=== PATIENT | female | born 1945 | race Caucasian/White ===

== ENCOUNTER 2016-10-07 20:35 | Inpatient (IN) | payer OTHER ==
[~2016-10-07] VITALS: Ht 165.1 cm; Wt 60.8 kg
--- NOTE | 2016-10-07 20:35 | NUR ---
PT AMBULATORY TO ER BED 10. C/O R SHOULDER/ R UPPER ARM PAIN S/P MECHANICAL FALL AT HOME AT AROUND 1999. PT DENIES HEAD TRAUMA. PLACED ON MONITOR. STABLE VITALS NOTED. AWAITNGMD EVAL.
--- NOTE | 2016-10-07 20:57 | NUR ---
[employer] AT BEDSIDE FOR EVAL.
[2016-10-07] MEDS ORDERED: oxyCODONE/APAP (5/325 MG) 1 UDTAB TABLET PO ONE (21:00)
[2016-10-07] MEDS ORDERED: MORPHINE SULFATE INJ 4 MG/ML DISP.SYRIN ONE (21:04)
[2016-10-07] MEDS ORDERED: ONDANSETRON 4 MG TAB.RAPDIS ONE (21:04)
--- NOTE | 2016-10-07 21:08 | NUR ---
ALLERGIC TO TYLENOL. KARLENE MADE AWARE. VERBAL ORDER FOR MORPHINE 4MG IM AND ZOFRAN 4MG ODT. CARRIED OUT.
--- NOTE | 2016-10-07 21:12 | NUR ---
RADIOLOGY AT BEDSIDE FOR R SHOULDER/ R HUMERUS XRAY.
[2016-10-07] MEDS ORDERED: ONDANSETRON 4 MG TAB.RAPDIS SL ONE (22:00)
[2016-10-07] MEDS ORDERED: MORPHINE SULFATE INJ 2 MG/ML DISP.SYRIN IV ONE (22:00)
--- NOTE | 2016-10-07 22:25 | NUR ---
RADIOLOGY AT BEDSIDE FOR CHEST XRAY.
[2016-10-07 22:30] LABS: BASOPHILS % (AUTO) 0.4 % (0.0-2.0); EOSINOPHILS # (AUTO) 0.1 /CMM (0.0-0.7); EOSINOPHILS % (AUTO) 1.1 % (0.0-6.0); HEMATOCRIT 40 % (33-45); HEMOGLOBIN 13.6 g/dL (11.5-14.8); LYMPHOCYTES # (AUTO) 1.3 /CMM (0.8-4.8); LYMPHOCYTES % (AUTO) 23.9 % (20.0-44.0); MEAN CORPUSCULAR HEMOGLOBIN 32 PG (26.0-33.0); MEAN CORPUSCULAR HGB CONC 34 g/dl (31.0-36.0); MEAN CORPUSCULAR VOLUME 93 fL (82-100); MONOCYTES # (AUTO) 0.5 /CMM (0.1-1.30); MONOCYTES % (AUTO) 8.6 % (2.0-12.0); NEUTROPHILS # (AUTO) 3.6 /CMM (1.8-8.9); PLATELET COUNT (AUTO) 186 /CMM (150-450); RDW COEFFICIENT OF VARIATION 14.3 (11.5-15.0); WHITE BLOOD COUNT (AUTO) 5.4 K/uL (4.3-11.0)
[2016-10-07 22:41] LABS: CALCIUM, SERUM 9.1 mg/dL (8.5-10.1); CARBON DIOXIDE 25 mmol/L (21-32); CHLORIDE 105 mmol/L (98-107); CREATININE 0.6 mg/dL (0.6-1.3); GLUCOSE 146 mg/dL (74-106); POTASSIUM 3.9 mmol/L (3.5-5.1); SODIUM SERUM 141 mmol/L (136-145); UREA NITROGEN, BLOOD 16 mg/dL (7-18)
[2016-10-07 22:45] LABS: INR 0.94 (0.87-1.13)
--- NOTE | 2016-10-07 22:46 | NUR ---
REPORT GIVEN TO ERICK. PT AWAITING TRANSFER TO FLOOR.
--- NOTE | 2016-10-07 22:47 | NUR ---
CALLED [employer] MILITARY SOURCE OPERATIONS OFFICER WAS PAGED.
[2016-10-07] MEDS ORDERED: ACETAMINOPHEN 325 MG TABLET PO PRN (23:00)
[2016-10-07] MEDS ORDERED: ZOLPIDEM TARTRATE 5 MG TABLET PO PRN (23:00)
[2016-10-07] MEDS ORDERED: MORPHINE SULFATE INJ 2 MG/ML DISP.SYRIN IV PRN (23:00)
[2016-10-07] MEDS ORDERED: Z GUARD REMEDY 2 OZ OINT TP PRN (23:00)
[2016-10-07] MEDS ORDERED: ONDANSETRON HCL/PF 4 MG/2 ML VIAL IVP PRN (23:00)
[2016-10-07] MEDS ORDERED: MAG HYDROX/AL HYDROX/SIMETH 30 ML UDC PO PRN (23:00)
[2016-10-07] MEDS ORDERED: HYDROCODONE/APAP 5/325MG 1 EACH TABLET PO PRN (23:00)
[2016-10-07 23:30] VITALS: BP 139/80
[2016-10-07] MEDS ORDERED: MORPHINE SULFATE INJ 2 MG/ML DISP.SYRIN ONE (23:35)
[2016-10-07] MEDS ORDERED: IV NS 0.9% 1,000 ML ONE (23:35)
[2016-10-07] MEDS ORDERED: IV SET PRIMARY PUMP SET 1 EA INFUS.SET MC ONE (23:36)
--- NOTE | 2016-10-07 23:45 | NUR ---
RN NOTE; ADMITTED A 71 Y/O, F, A. OX4, BREATHING EVENLY. NO SOB. NAD. SKIN WARM AND DRY. ABLE TO AMBULATE TO THE BED W/ ASSIST. W/ C/O PAIN OR RIGHT SHOULDER UPON MOVEMENT AND REPOSITION OTHER [place] TOLERABLE. VS:WNL. IV LINE INTACT AND PATENT. ABLE TO PROVIDE FULL DETAILED MEDICAL HX. NEEDS ATTENDED . CALL LIGHT WITHIN REACH. WILL CONT TO MONITOR AND WILL F/U W/ MD'S ORDERS.
[2016-10-07] MEDS: IV NS 0.9% 1,000 ML IV PRN (23:49)
[2016-10-08] VITALS: BP 139/80
--- NOTE | 2016-10-08 00:20 | NUR ---
S/B DR. BRANDON KEATING W/ SOME NEW ORDERS .
--- NOTE | 2016-10-08 00:30 | NUR ---
RECEIVED A CALL FROM JEOVANNY FROM PT'S INSURANCE COMPANY, SHERRI STATED THE PT'S INSURANCE WILL COVER OVER NIGHT STAY, PAIN MANAGEMENT AND PHYSICIAN CONSULT HOWEVER PT WILL NEED AUTHORIZATION FOR POSSIBLE SX.
--- NOTE | 2016-10-08 01:00 | NUR ---
morphine given as ordered for c/o severe r shoulder pain. will cont to monitor
--- NOTE | 2016-10-08 06:15 | NUR ---
RN NOTE; PT IN BED SLEEPING, AROUSES EASILY. BREATHING EVENLY. N SOB. NAD. SKIN WARM AND DRY. SLING ON THE R SHOULDER/ ARM IN PLACE. MORPHINE GIVEN FOR PAIN MANAGEMENT, EFFECTIVE. NEEDS ATTENDED. CALL LIGHT WITHIN REACH. WILL CONT TO MONITOR AND WILL ENDORSE TO AM SHIFT FOR KACI.
--- NOTE | 2016-10-08 07:05 | NUR ---
RN NOTE: RECEIVED PATIENT WHILE SITTING ON CHAIR AT BEDSIDE. PATIENT A/OX 3. BREATHING EVEN AND UNLABORED ON ROOM AIR. PATIENT'S RIGHT ARM IN SLING, NO COMPLAINTS OF PAIN AT THIS MOMENT. PATIENT'S NEEDS ATTENDED TO, SAFETY MEASURES IN PLACE, WILL CONTINUE TO MONITOR.
[2016-10-08 08:00] VITALS: BP 121/71
[2016-10-08] MEDS ORDERED: ATOR40TA PO (08:35)
[2016-10-08] MEDS ORDERED: EZET10TA27 PO (08:35)
[2016-10-08 08:37] LABS: BASOPHILS % (AUTO) 0.2 % (0.0-2.0); EOSINOPHILS # (AUTO) 0.1 /CMM (0.0-0.7); EOSINOPHILS % (AUTO) 0.8 % (0.0-6.0); HEMATOCRIT 40 % (33-45); HEMOGLOBIN 13.5 g/dL (11.5-14.8); LYMPHOCYTES # (AUTO) 1.8 /CMM (0.8-4.8); LYMPHOCYTES % (AUTO) 20.4 % (20.0-44.0); MEAN CORPUSCULAR HEMOGLOBIN 32 PG (26.0-33.0); MEAN CORPUSCULAR HGB CONC 34 g/dl (31.0-36.0); MEAN CORPUSCULAR VOLUME 93 fL (82-100); MONOCYTES # (AUTO) 0.6 /CMM (0.1-1.30); MONOCYTES % (AUTO) 6.8 % (2.0-12.0); NEUTROPHILS # (AUTO) 6.4 /CMM (1.8-8.9); NEUTROPHILS % (AUTO) 71.8 % (43.0-81.0); PLATELET COUNT (AUTO) 184 /CMM (150-450); RED BLOOD CELL COUNT(AUTO) 4.27 MIL/uL (4.0-5.2); WHITE BLOOD COUNT (AUTO) 8.9 K/uL (4.3-11.0)
[2016-10-08] MEDS: PANTOPRAZOLE 40 MG TABLET.DR PO SCH (08:50)
[2016-10-08 08:51] LABS: ALANINE AMINOTRANSFERASE 23 U/L (12-78); ALBUMIN 3.5 g/dL (3.4-5.0); ALKALINE PHOSPHATASE 63 U/L (46-116); ASPARTATE AMINOTRANSFERASE 17 U/L (15-37); BILIRUBIN,TOTAL 0.3 mg/dL (0.2-1.0); CALCIUM, SERUM 8.5 mg/dL (8.5-10.1); CARBON DIOXIDE 26 mmol/L (21-32); CHLORIDE 104 mmol/L (98-107); CREATININE 0.6 mg/dL (0.6-1.3); GLUCOSE 99 mg/dL (74-106); MAGNESIUM 1.9 mg/dL (1.8-2.4); PHOSPHORUS 4.6 mg/dL (2.5-4.9); POTASSIUM 4.8 mmol/L (3.5-5.1); SODIUM SERUM 140 mmol/L (136-145); TOTAL PROTEIN, SERUM 6.9 g/dL (6.4-8.2); UREA NITROGEN, BLOOD 16 mg/dL (7-18)
--- NOTE | 2016-10-08 10:15 | NUR ---
MS RN NOTE: PER LUIS MIGUEL BLUNT OKAY TO CHANGE MORPHINE 3 MG TO DILAUDID 1MG Q4H PRN. PATIENT IN PAIN, WILL ADMINISTER DILAUDID.
[2016-10-08] MEDS ORDERED: HYDROMORPHONE 1 MG/1 ML DISP.SYRIN IV PRN (10:30)
--- NOTE | 2016-10-08 12:55 | NUR ---
MS RN NOTE: PATIENT EXPLAINED SURGICAL PROCEDURE SCHEDULED FOR TOMORROW. PATIENT VERBALIZES UNDERSTANDING AND HAS SIGNED CONSENT FOR SURGERY, ANESTHESIA, AND BLOOD TRANSFUSION. CONSENTS PLACED IN CHART.
--- NOTE | 2016-10-08 15:05 | NUR ---
MS RN NOTE: PER LUIS MIGUEL SANCHEZ, ORDER CT RIGHT SHOULD WITHOUT CONTRAST. ORDER PLACED, WILL CONTINUE TO MONITOR.
--- NOTE | 2016-10-08 15:13 | NUR ---
MS RN NOTE: PATIENT STATING HER INSURANCE COMPANY WILL NOT AUTHORIZE CT SCAN. PATIENT UNWILLING TO DO CT SCAN UNLESS AUTHORIZED, WILL CONTINUE TO MONITOR.
--- NOTE | 2016-10-08 15:31 | NUR ---
PT REFUSED CT SCAN.
[2016-10-08] MEDS: IBUPROFEN 400 MG TABLET PO PRN (15:51)
--- NOTE | 2016-10-08 15:56 | NUR ---
MS RN NOTE: PATIENT C/O HEADACHE, REQUESTING IBUPROFEN. EQUIPMENT OPERATING ENGINEER, STEVE BYRD INFORMED AND HAS ORDERED 400MG Q6H PRN. MEDICATION ORDERED AND ADMINISTERED TO PATIENT ORALLY. NO COMPLICATIONS NOTED, WILL CONTINUE TO MONITOR.
[2016-10-08 16:00] VITALS: BP 144/72
[2016-10-08] MEDS: IV NS 0.9% 1,000 ML IV PRN (18:10)
--- NOTE | 2016-10-08 18:43 | NUR ---
MS RN NOTE: PATIENT RESTING IN BED, A/OX 4. BREATHING EVEN AND UNLABORED ON ROOM AIR. NO SOB, NO DISTRESS. PATIENT'S RIGHT UPPER ARM IN SLING, NO COMPLICATIONS AT THIS TIME. PATIENT IN NO NEED FOR PAIN MEDICATION FOR NOW. PATIENT'S NEEDS ATTENDED TO, SAFETY MEASURES IN PLACE, WILL ENDORSE TO TRIAGE TECHNICIAN FOR KACI.
--- NOTE | 2016-10-08 19:37 | NUR ---
MS RN NOTES ALERT AND ORIENTED . VERBALLY RESPONSIVE TO STIMULI. DENIES ANY PAIN WHEN ASKED. ON ROOM AIR. NO ACUTE RESP. DISTRESS NOTED. AMBULATORY. LEFT AC IV ACCESS NOTED, INTACT AND PATENT WITH IVF INFUSING WELL AT 75 CC/ HR. NO S/S OF FLUID OVERLOAD. ALL NEEDS ATTENDED PROMPTLY. CLEAN AND DRY. WILL CONTINUE TO MONITOR. Addendum: 10/08/16 at 2100 by JOSELUIS MUSA RN ADDENDUM: RIGHT ARM SLING IN PLACED.
[2016-10-08 20:00] VITALS: BP 110/96
[2016-10-08] MEDS: ATORVASTATIN 40 MG TABLET PO SCH (21:17)
[2016-10-08] MEDS: EZETIMIBE 10 MG TABLET PO SCH (21:17)
[2016-10-08 21:27] VITALS: BP 140/96
[2016-10-09] VITALS (11 sets, daily range): BP systolic 123–146; BP diastolic 67–93
[2016-10-09] MEDS: IBUPROFEN 400 MG TABLET PO PRN ×2 (05:58→17:58)
[2016-10-09 06:39] LABS: BASOPHILS % (AUTO) 0.3 % (0.0-2.0); EOSINOPHILS # (AUTO) 0.1 /CMM (0.0-0.7); EOSINOPHILS % (AUTO) 0.6 % (0.0-6.0); HEMATOCRIT 41 % (33-45); HEMOGLOBIN 13.9 g/dL (11.5-14.8); LYMPHOCYTES # (AUTO) 1.6 /CMM (0.8-4.8); LYMPHOCYTES % (AUTO) 18.7 % (20.0-44.0); MEAN CORPUSCULAR HEMOGLOBIN 32 PG (26.0-33.0); MEAN CORPUSCULAR HGB CONC 34 g/dl (31.0-36.0); MEAN CORPUSCULAR VOLUME 93 fL (82-100); MONOCYTES # (AUTO) 0.7 /CMM (0.1-1.30); MONOCYTES % (AUTO) 7.9 % (2.0-12.0); NEUTROPHILS # (AUTO) 6.2 /CMM (1.8-8.9); NEUTROPHILS % (AUTO) 72.5 % (43.0-81.0); PLATELET COUNT (AUTO) 168 /CMM (150-450); RDW COEFFICIENT OF VARIATION 14.3 (11.5-15.0); WHITE BLOOD COUNT (AUTO) 8.6 K/uL (4.3-11.0)
[2016-10-09] MEDS: PANTOPRAZOLE 40 MG TABLET.DR PO SCH (06:46)
[2016-10-09 06:55] LABS: CALCIUM, SERUM 8.9 mg/dL (8.5-10.1); CARBON DIOXIDE 25 mmol/L (21-32); CHLORIDE 105 mmol/L (98-107); CREATININE 0.7 mg/dL (0.6-1.3); GLUCOSE 111 mg/dL (74-106); POTASSIUM 4.1 mmol/L (3.5-5.1); SODIUM SERUM 139 mmol/L (136-145); UREA NITROGEN, BLOOD 11 mg/dL (7-18)
--- NOTE | 2016-10-09 07:02 | NUR ---
MS RN NOTES NO SIGNIFICANT CHANGES NOTED DURING THE NIGHT. PT COMPLAINT OF MOD PAIN. MOTRIN 400 GIVEN WITH LITTLE SIPS OF WATER.ALL NEEDS ATTENDED PROMPTLY. KEPT CLEAN AND DRY. ENDORSE TO THE NEXT SHIFT.
--- NOTE | 2016-10-09 07:30 | NUR ---
MS/RN Patient received Patient received from football coach. No needs at this time, NPO ready for surgery.
--- NOTE | 2016-10-09 08:16 | NUR ---
MS/RN Ready for surgery Patient ready for surgery, all consent forms signed.
--- NOTE | 2016-10-09 09:20 | NUR ---
MS/RN OR Patient taken to operating room in stable condition. Medical record with patient.
[2016-10-09] MEDS ORDERED: BACITRACIN 50000 UNITS/VIAL ONE ×2 (09:43)
[2016-10-09] MEDS ORDERED: HYDROMORPHONE INJ 2 MG/ML DISP.SYRIN ONE ×2 (09:58→11:57)
[2016-10-09] MEDS ORDERED: FENTANYL PF 100MCG/2ML AMPUL ONE (09:58)
[2016-10-09] MEDS ORDERED: ROCURONIUM BROMIDE 50 MG/5 ML ONE (09:58)
[2016-10-09] MEDS ORDERED: BUPIVACAINE 0.5 % PF 150 MG/30 ML VIAL ONE (11:23)
--- NOTE | 2016-10-09 12:30 | NUR ---
MS/RN Back from OR Patient back from operating room, s/p ORIF right humerus. Vital signs on return stable, wound dressing dry and intact, no oozing noted. Full range of motion to fingers on right hand, pulses felt, extremity warm to touch. Family at bedside and updated as to plan of care. Will continue to monitor.
[2016-10-09] MEDS ORDERED: oxyCODONE IR immediate release 5 MG CAPSULE PO PRN (14:00)
--- NOTE | 2016-10-09 14:05 | NUR ---
MS/RN S/B Dr Soto Seen by Dr Soto - no new orders.
--- NOTE | 2016-10-09 14:11 | NUR ---
MS/RN Rounds Patient sleeping, appears comfortable, no pain medication required since return.
--- NOTE | 2016-10-09 16:08 | NUR ---
MS/RN Post op Post op vital signs remain stable, no complaints of pain. Ancef dose due at 2100.
[2016-10-09] MEDS: IV NS 0.9% 1,000 ML IV PRN (16:57)
--- NOTE | 2016-10-09 18:21 | NUR ---
MS/RN End note No changes in condition post operatively, ibuprofen given for headache and neck pain. Will continue to monitor and ensure safety.
--- NOTE | 2016-10-09 19:30 | NUR ---
MS RN NOTES RECEIVED PT IN BED, NO DISTRESS, NO SOB NOTED. A/O X 4 . VERBALLY RESPONSIVE. DENIES ANY PAIN OR DISCOMFORT AT THIS TIME. IV SITE ON RFA INTACT AND PATENT. NO S/S OF INFILTRATION. PT ON S/P ORIF ON RIGHT HUMERUS. DRESSING INTACT , WITH NO BLEEDING NOTED AT THIS TIME. ABLE TO MOVE FINGERS WITHOUT DIFFICULTY, PARK WARM TO TOUCH. IVF INFUSING WELL. ALL NEEDS ATTENDED. KEPT COMFORTABLE. CALL KAMINSKI WITHIN REACH. WILL CONTINUE TO MONITOR.
[2016-10-09] MEDS ORDERED: SECONDARY IV SET 1 EA INFUS.SET MC ONE (20:57)
[2016-10-09] MEDS: ANCEF 1 GM/50 ML D5W IV SCH ×2 (21:07)
[2016-10-09] MEDS: EZETIMIBE 10 MG TABLET PO SCH (21:08)
[2016-10-09] MEDS: ATORVASTATIN 40 MG TABLET PO SCH (21:08)
[2016-10-09] MEDS: MAGNESIUM HYDROXIDE 30 ML UDC PO PRN (23:28)
[2016-10-09] MEDS: oxyCODONE IR immediate release 5 MG CAPSULE PO PRN (23:34)
--- NOTE | 2016-10-10 01:30 | NUR ---
PT ASLEEP AT THIS TIME, AROUSES EASILY. NO DISTRESS , NO SOB NOTED. NO C/O PAIN OR DISCOMFORT AT THIS TIME. ALL NEEDS ATTENDED. WILL CONT TO MONITOR.
[2016-10-10] MEDS: ANCEF 1 GM/50 ML D5W IV SCH ×4 (04:59→13:00)
[2016-10-10] MEDS: oxyCODONE IR immediate release 5 MG CAPSULE PO PRN ×3 (05:38→21:16)
[2016-10-10] MEDS: PANTOPRAZOLE 40 MG TABLET.DR PO SCH (06:27)
--- NOTE | 2016-10-10 06:37 | NUR ---
MS RN NOTES PT IN BED, RESTING COMFORTABLY AT THIS TIME, AROUSES EASILY. NO DISTRESS, NO SOB NOTED. A/O X 4 . VERBALLY RESPONSIVE. DENIES ANY PAIN OR DISCOMFORT AT THIS TIME. IV SITE ON LFA INTACT AND PATENT. IVF INFUSING WELL. NO S/S OF INFILTRATION. PT ON S/P ORIF ON RIGHT HUMERUS. DRESSING INTACT , WITH NO BLEEDING NOTED. ABLE TO MOVE FINGERS WITHOUT DIFFICULTY, RUE WARM TO TOUCH. ABLE TO WALK WITH ASSISTANCE. ABLE TO URINATE FREELY WITH YELLOW URINE. ALL NEEDS ATTENDED. KEPT COMFORTABLE. WILL ENDORSE TO NEXT SHIFT FOR KACI.
[2016-10-10 06:39] LABS: HEMATOCRIT 36 % (33-45); HEMOGLOBIN 12.5 g/dL (11.5-14.8); LYMPHOCYTES # (AUTO) 1.6 /CMM (0.8-4.8); LYMPHOCYTES % (AUTO) 17.4 % (20.0-44.0); MEAN CORPUSCULAR HEMOGLOBIN 32 PG (26.0-33.0); MEAN CORPUSCULAR HGB CONC 35 g/dl (31.0-36.0); MEAN CORPUSCULAR VOLUME 92 fL (82-100); MONOCYTES % (AUTO) 10.8 % (2.0-12.0); NEUTROPHILS # (AUTO) 6.8 /CMM (1.8-8.9); NEUTROPHILS % (AUTO) 71.8 % (43.0-81.0); PLATELET COUNT (AUTO) 164 /CMM (150-450); RDW COEFFICIENT OF VARIATION 14.1 (11.5-15.0); RED BLOOD CELL COUNT(AUTO) 3.91 MIL/uL (4.0-5.2); WHITE BLOOD COUNT (AUTO) 9.4 K/uL (4.3-11.0)
[2016-10-10 06:45] LABS: CALCIUM, SERUM 8.6 mg/dL (8.5-10.1); CARBON DIOXIDE 28 mmol/L (21-32); CHLORIDE 104 mmol/L (98-107); CREATININE 0.6 mg/dL (0.6-1.3); GLUCOSE 108 mg/dL (74-106); SODIUM SERUM 139 mmol/L (136-145); UREA NITROGEN, BLOOD 11 mg/dL (7-18)
--- NOTE | 2016-10-10 07:30 | NUR ---
MS/RN Patient received Patient received from retail shift supervisor. No needs at this time, will continue to monitor and ensure safety.
[2016-10-10 08:00] VITALS: BP 129/78
[2016-10-10 08:53] VITALS: BP 129/78
--- NOTE | 2016-10-10 12:00 | NUR ---
MS/assistant director of nursing Per Meaghan (ortho), patient to keep incision clean and dry until removal of ella in 10 days. May order physical therapt for pendulm exercises only.
[2016-10-10] MEDS ORDERED: ACETAMINOPHEN 325 MG TABLET PO SCH (13:30)
[2016-10-10] MEDS ORDERED: oxyCODONE IR immediate release 5 MG CAPSULE PO PRN (13:30)
--- NOTE | 2016-10-10 13:30 | NUR ---
MS/RN S/B Dr Soto Seen by Dr Soto - pain medications readjusted: -oxycodone 15mg severe pain -oxycodone 10mg moderate pain -oxycodone 5mg mild pain
--- NOTE | 2016-10-10 13:37 | NUR ---
MS/RN S/B Hany Vaughan software security architect Seen by [employer] - to remain in hospital overnight, will be seen first thing tomorrow to evaluate if pain medication adequate. If so, will discharge to home tomorrow.
[2016-10-10 16:00] VITALS: BP 144/76
--- NOTE | 2016-10-10 17:00 | NUR ---
MS/RN S/B Physical therapy Seen by PT - patient shown pendulum exercises.
--- NOTE | 2016-10-10 18:12 | NUR ---
MS/RN End note Patient now more comfortable on 15mg oxycodone, appears to be controlling pain well. Able to sit up in bed unassisted while eating. All needs attended, will continue to monitor and endorse to nightshift.
--- NOTE | 2016-10-10 19:30 | NUR ---
MS RN NOTES RECEIVED PT SITTING UP IN BED, AT BEDSIDE. PT IS STABLE, NO SOB NO DISTRESS NOTED. VERBALLY RESPONSIVE. NO C/O PAIN OR DISCOMFORT AT THIS TIME. ON S/P RIGHT HUMERUS ORIF, SURGICAL SITE WITH CLEAN AND INTACT DRESSING, NO BLEEDING NOTED. PTV ABLE TO MOVE PARK AND FINGERS. IV SITE ON LFA INTACT AND PATENT , NO S/S OF INFILTRATION NOTED. IVF INFUSING WELL. ALL NEEDS ATTENDED AND MET. KEPT COMFORTABLE. WILL CONTINUE TO MONITOR.
[2016-10-10 19:41] VITALS: BP 134/77
[2016-10-10] MEDS: MAGNESIUM HYDROXIDE 30 ML UDC PO PRN (19:43)
[2016-10-10 20:00] VITALS: BP 134/77
[2016-10-10] MEDS: ATORVASTATIN 40 MG TABLET PO SCH (21:14)
[2016-10-10] MEDS: EZETIMIBE 10 MG TABLET PO SCH (21:14)
--- NOTE | 2016-10-10 21:35 | NUR ---
PLACED A CALL TO DR. MARTI AND DISCUSSED THAT PT HAVEN'T HAD BM, FOR 3 DAYS , PRUNE JUICE OFFERED BUT PT DOESN'T WANT TO, MOM WAS GIVEN LAST NIGHT AND AT 1943 , PER PT INEFFECTIVE . PT REQUESTING FOR S[place] , DR. MARTI WITH NEW ORDERS NOTED AND CARRIED OUT.
[2016-10-10] MEDS ORDERED: SENNOSIDES 8.6 MG TABLET ONE (21:36)
[2016-10-10] MEDS ORDERED: BISACODYL SUPP (10 MG) 10 MG/SUPP.RECT SUPP.RECT RC PRN (22:00)
[2016-10-10] MEDS ORDERED: BISACODYL (5 MG) 5 MG TABLET.DR PO PRN (22:00)
[2016-10-10] MEDS ORDERED: SENNOSIDES 8.6 MG TABLET PO PRN (22:00)
[2016-10-11] MEDS: oxyCODONE IR immediate release 5 MG CAPSULE PO PRN ×3 (01:06→11:03)
--- NOTE | 2016-10-11 06:24 | NUR ---
MS RN NOTES PT IN BED, A/O X4. VERBALLY RESPONSIVE. STABLE, NO SOB NO DISTRESS NOTED. NO C/O PAIN OR DISCOMFORT AT THIS TIME. ON S/P RIGHT HUMERUS ORIF, SURGICAL SITE WITH CLEAN AND INTACT DRESSING, NO BLEEDING NOTED. PT ABLE TO MOVE PARK AND FINGERS. IV SITE ON LFA INTACT AND PATENT , NO S/S OF INFILTRATION NOTED. IVF INFUSING WELL. ALL NEEDS ATTENDED AND MET. KEPT COMFORTABLE. WILL ENDORSE TO NEXT SHIFT FOR KACI.
[2016-10-11] MEDS: PANTOPRAZOLE 40 MG TABLET.DR PO SCH (06:34)
--- NOTE | 2016-10-11 07:15 | NUR ---
RN MS OBED PATIENT IN BED, ALERT AND ORIENTED, NO COMPLAINT OF PAIN AT THIS TIME, NO DISTRESS NOTED, NEEDS ATTENDED, PATIENT PREPARING FOR DISCHARGE TODAY, GENTLY DOING SOME EXERCISES ON HER RIGHT ARM, CALL LIGHT WITHIN REACH, SAFETY MEASURES IN PLACED, WILL CONTINUE TO MONITOR.
[2016-10-11 08:00] VITALS: BP 136/81
[2016-10-11] MEDS ORDERED: OXYC5CAP3 PO (10:51)
[2016-10-11] MEDS ORDERED: SENN8.6T6 PO (10:51)
[2016-10-11] MEDS ORDERED: DOCU-25 PO (10:51)
--- NOTE | 2016-10-11 10:56 | NUR ---
SCARLETT MS NOTES PATIENT SEEN AND EXAMINED BY STEVE VELIZ, RECEIVED DISCHARGE ORDER, ORDER NOTED AND CARRIED OUT, PER DIRECTOR WATER AND WASTE SERVICES KEEP THE DRESSING ON SURGICAL INCISION, NO NEED TO CHANGE IT AT THIS TIME, UNABLE TO TAKE PHOTO, PATIENT HAS NOT HAD ANY BOWEL MOVEMENT FOR A FEW DAYS, STEVE VELIZ STATED MEDICATIONS FOR BOWEL MANAGEMENT WILL BE GIVEN, AND ALSO DISCUSSED THE USE OF FLEET ENEMA IF PATIENT FEELS ANY ABDOMINAL PAIN.
--- NOTE | 2016-10-11 11:30 | NUR ---
NATIONAL INVESTIGATIVE PRODUCER NOTE PATIENT ALERT AND ORIENTED, NO DISTRESS NOTED, PAIN MEDICATION EFFECTIVE, PAIN LEVEL TOLERABLE AT THIS TIME, DISCHARGE INSTRUCTIONS PROVIDED TO PATIENT AND AND VERBALIZED UNDERSTANDING, MALINDA SIGNED DISCHARGE PAPERWORKS PER PATIENT'S REQUEST, PRESCRIPTION PROVIDED, ALL BELONGINGS RECONCILED, SKIN ASSESSMENT INTACT EXCEPT FOR DAYANNA ON RIGHT SHOULDER, DRESSING CLEAN DRY AND INTACT, PER DRIER AND GRINDER TENDER DO NOT REMOVE DRESSING AT THIS TIME, PIV REMOVED, NEEDS ATTENDED, AND LEFT THE FACILITY ACCOMPANIED BY AND FAMILY VIA PRIVATE CAR.
== END 2016-10-11 11:30 | disposition home or self-care (01) | DRG 494 ==
LOC: ER 20:37 → MEDSG2 23:13
PROVIDERS: ADMIT Family Medicine; ATTEND Family Medicine
PROC: 0PSC04Z Reposition Right Humeral Head with Internal Fixation Device, Open Approach (ICD-10-PCS; principal; 2016-10-09 10:33)
DX: S42.211A Unspecified displaced fracture of surgical neck of right humerus, initial encounter for closed fracture (principal); E78.5 Hyperlipidemia, unspecified; W01.0XXA Fall on same level from slipping, tripping and stumbling without subsequent striking against object, initial encounter; Y93.9 Activity, unspecified; R79.89 Other specified abnormal findings of blood chemistry; Y92.000 Kitchen of unspecified non-institutional (private) residence as the place of occurrence of the external cause
CPT/HCPCS: 36415; 71010-TC; 73020; 73030-TC; 73060-TC; 80048-TC; 80053-TC; 83735-TC; 84100-TC; 85025-TC; 85730-TC; 86850-TC; 87081-TC; 93307-TC; 97001-TC; A4217; A4565; A4606; A6402; J0690; J1100; J1170; J2270; J2405; J2704; J2710; J3010; J3490; J7030; J7060; Q0162; Z7610